=== PATIENT | female | born 1970 | race Two or more races ===

== ENCOUNTER 2018-01-05 12:59 | Emergency (ER) | payer MEDICAID, OTHER ==
[~2018-01-05] VITALS: Ht 170.2 cm; Wt 99.8 kg
[2018-01-05 15:32] VITALS: BP 171/85
[2018-01-05] MEDS ORDERED: KETOROLAC TROMETH 60MG/2ML VIAL IM ONE (17:00)
== END 2018-01-05 17:52 | disposition home or self-care (01) ==
LOC: ER 13:08
DX: M54.42 Lumbago with sciatica, left side (principal); E11.40 Type 2 diabetes mellitus with diabetic neuropathy, unspecified; I10 Essential (primary) hypertension; Z86.2 Personal history of diseases of the blood and blood-forming organs and certain disorders involving the immune mechanism
CPT/HCPCS: 73502; 82962; 96372; 99284; J1885

== ENCOUNTER 2018-01-25 09:35 | Emergency (ER) | payer MEDICAID ==
[~2018-01-25] VITALS: Ht 170.2 cm; Wt 104.3 kg
[2018-01-25 09:50] VITALS: BP 153/79
[2018-01-25] MEDS ORDERED: HYDROcodone-ACET 10/325MG TAB PO ONE (10:45)
[2018-01-25] MEDS ORDERED: KETOROLAC TROMETH 60MG/2ML VIAL IM ONE (10:45)
== END 2018-01-25 12:31 | disposition home or self-care (01) ==
LOC: ER 09:35
DX: M54.42 Lumbago with sciatica, left side (principal); E11.9 Type 2 diabetes mellitus without complications; I10 Essential (primary) hypertension; Z90.89 Acquired absence of other organs; Z90.49 Acquired absence of other specified parts of digestive tract
CPT/HCPCS: 82962; 96372; 99283; J1885